=== PATIENT | female | born 1990 | race Caucasian/White ===

== ENCOUNTER → 2016-10-02 13:25 | Observation (INO) ==
--- NOTE | 2016-10-02 11:41 | OB/GYN Progress Note ---
Date of Encounter: 10/02/16 Time of Encounter: 11:40 - Assessment and Plan (1) Short interval between pregnancies affecting in third trimester, antepartum Current Visit: Yes Status: Acute (2) 32 weeks gestation of Current Visit: Yes Status: Acute (3) Cramping affecting , antepartum Current Visit: Yes Status: Acute Pt reports cramping has significantly improved since arrival to triage. SVE with repeat exam unchanged. We discussed that dehydration and intercourse can both lead to contractions. Pt to avoid intercourse until her next appointment and to increase water intake. Discharge home with strict PTL precautions. (4) Anti-D antibodies present during Current Visit: No Status: Acute Pt to follow-up as scheduled. Qualifiers: Fetus number: single or unspecified fetus Trimester: third trimester Qualified Code(s): O36.0130 - Maternal care for anti-D [Rh] antibodies, third trimester, not applicable or unspecified Subjective - Subjective Principal diagnosis: cramping Interval history: 26 year-old presenting at 32w2d with c/o cramping and nausea. She reports intercourse this am as well as cramping, nausea, and vomiting for the last 2 days. She states she vomited this am and has some mild nausea now. She denies need for nausea medication. She states the cramping has been constant this am. She also reports urinary frequency but states that is not a new symptom. Good FM. No other complaints. Antepartum ROS: movement normal, contractions, no loss of fluid, no vaginal bleeding Objective - Vital Signs Vital Signs: Intake and Output 10/01/16 10/02/16 10/02/16 23:59 07:59 15:59 Other: Weight 66.5 kg Patient Weight 10/02/16 23:59 Weight 66.5 kg - Exam FHR: category 1 FHR comments: NST reactive. Auscultation: bilateral: normal Abdomen: Present: soft, gravid. Absent: tenderness Uterus: Absent: tenderness Cervical dilation: 1 Cervix effacement: 70 station: high
[2016-10-02 12:02] LABS: Bilirubin,Urine Negative (Negative); Blood,Urine Negative (Negative); Color,Urine Yellow (Yellow); Glucose,Urine (UA) Normal (Normal); Ketones,Urine Negative (Negative); Leukocyte Esterase,Urine Negative (Negative); Nitrite,Urine Negative (Negative); PH,Urine 7.5 pH Units (5.0-8.0); Protein,Urine Trace mg/dL (Neg-Trace); Specific Gravity,Urine 1.022 (1.010-1.025); Urobilinogen,Urine Normal (Normal)
[2016-10-02 12:06] LABS: Clarity,Urine Clear (Clear)
== END | disposition home or self-care (01) ==
LOC: 1NENULAB
PROVIDERS: ADMIT Obstetrics & Gynecology; ATTEND Obstetrics & Gynecology

== ENCOUNTER → 2016-11-12 01:42 | Observation (INO) ==
--- NOTE | 2016-11-12 01:17 | OB/GYN History & Physical ---
Date of Encounter: 11/11/16 Time of Encounter: 22:45 Assessment and Plan (1) 38 weeks gestation of Current visit: Yes Status: Acute extended monitoring cervical checks Kleihauer-Betke Hgb quant (2) Maternal care for anti-D (Rh) antibodies in third trimester Current visit: Yes Status: Acute Qualifiers: Fetus number: single or unspecified fetus Qualified Code(s): O36.0130 - Maternal care for anti-D [Rh] antibodies, third trimester, not applicable or unspecified History of Present Illness Chief complaint: fall while HPI: Ms. Sunshine is a 26 year old female at 38.0 weeks gestation who presents after tripping and falling on her gravel driveway earlier this evening around 5pm. She states she had decreased movement after the fall. Denies vaginal bleeding, loss of fluid, dizziness, blurred vision, headache. Labs: Blood type A- GBS -, Rubella immune Past Med Surg Social Fam HX - Past Medical History Medical history: GERD Psychiatric history: anxiety, depression - Past Surgical History Surgical History: cholecystectomy - Social History Smoking Status: Former smoker Smokeless Tobacco Status: No Alcohol use: none Drug use: none - Family History Brother Family Member Ethnicity: Non- Living Status: Still Living Hx Family Cardiac Disorders: No Hx Family Respiratory Disorders: No Hx Family Cancer: No Hx Family GI Disorders: No Hx Family Genitourinary Disorders: No Hx Family Endocrine Disorder: No Hx Family Musculoskeletal Disorders: No Hx Family Neuromuscular Disorders: No Hx Family Neurologic Disorders: No Hx Family HEENT Disorders: No Hx Family Autoimmune Disorders: No Hx Family Reproductive Disorders: No Hx Family Psychosocial Disorders: No Hx Family Medical Disorders: No Obstetrical History - Pregnancies : 5 Para: 4 Term: 4 : 0 Ab's: 0 Livin Medications and Allergies Mini Tablet 1 tab PO DAILY 12/08/15 [History] Allergies No Known Allergies Allergy (Verified 08/14/15 12:52) Review of System OB - Constitutional Constitutional ROS IM: as per HPI Exam - Constitutional Constitutional: well developed, well nourished, no acute distress, average body habitus - HEENT HEENT: Normocephaly, Mucus Membranes Moist - Neck Neck exam: normal inspection - Lungs Respiratory exam: CTAB - Cardiovascular Cardiovascular exam: RRR, +S1, +S2 - Abdomen Abdomen: Present: bowel sounds normal, gravid, non tender - Extremities Extremities exam: normal capillary refill, normal inspection, warm - Cervix Dilation: 3 Effacement: 70 Results All other labs normal. - VTE Reasons for not Prescribing Prophylaxis: Treatment not Indicated - Low risk for VTE
== END | disposition home or self-care (01) ==
LOC: 1NENULAB
PROVIDERS: ADMIT Obstetrics & Gynecology; ATTEND Obstetrics & Gynecology

== ENCOUNTER 2016-11-22 21:34 | Inpatient (IN) ==
[2016-11-22] MEDS ORDERED: Naloxone 0.4 MG/ML INJ IVP PRN (21:56)
[2016-11-22] MEDS ORDERED: Famotidine 20 MG/2 ML VIAL IVP PRN (21:56)
[2016-11-22] MEDS ORDERED: Ringers Solution, Lactated 1,000 ML ONE (22:05)
[2016-11-22] MEDS ORDERED: Ringers Solution, Lactated 1,000 ML IVC SCH (22:15)
[2016-11-22 22:22] LABS: Basophils % 0.4 %; Eosinophils # 0.3 K/mcL (0.0-0.6); Eosinophils % 2.8 %; Hemoglobin 8.6 g/dL (11.5-15.4); Immature Granulocytes % 0.7 % (0-4); Immature Platelets 10.4 % (1.1-6.1); Lymphocytes # 1.8 K/mcL (0.6-4.6); Lymphocytes % 16.9 %; Mean Corpuscular HGB Conc 29.7 g/dL (31.6-35.5); Mean Corpuscular Hemoglobin 21.7 pg (28.0-33.3); Mean Platelet Volume 12.1 fL (9.4-12.4); Monocytes # 0.6 K/mcL (0.0-1.3); Neutrophils # 7.8 K/mcL (1.6-8.9); Platelet Count 260 K/mcL (140-400); Red Blood Count 3.97 M/mcL (3.82-4.97); Red Cell Distribution Width 17.1 % (11.5-14.5); Segmented Neutrophils % 73.2 %
--- NOTE | 2016-11-22 22:59 | OB/GYN History & Physical ---
Date of Encounter: 11/22/16 Time of Encounter: 22:55 Assessment and Plan (1) Maternal care for anti-D (Rh) antibodies in third trimester Current visit: No Status: Acute Qualifiers: Fetus number: single or unspecified fetus Qualified Code(s): O36.0130 - Maternal care for anti-D [Rh] antibodies, third trimester, not applicable or unspecified (2) Short interval between pregnancies affecting in third trimester, antepartum Current visit: No Status: Acute (3) Spontaneous onset of labor Current visit: No Status: Acute Admit to labor and delivery Encourage ambulation May have intermittent monitoring every 30 minutes before, during and after a contraction Nuabin and epidural as desired Anticipate Desires BPS History of Present Illness Chief complaint: Contractions HPI: Ms. Sunshine is a 26 year old 39+4 female presents to triage with contractions since 6pm this evening. complicated by Rh isoimmunization. Titers stable at 8. PAP ASCUS +HPV with colposcopy. Reports good movement, denies vaginal bleeding or leaking of fluid. Pt desires BPS Labs: A-, Rubella immune, GBS -, all other serologies negative. Past Med Surg Social Fam HX - Past Medical History Medical history: GERD Psychiatric history: anxiety, depression - Past Surgical History Surgical History: cholecystectomy - Social History Smoking Status: Former smoker Smokeless Tobacco Status: No Alcohol use: none Drug use: none - Family History Brother Adopted: No Family Member Ethnicity: Non- Living Status: Still Living Hx Family Cardiac Disorders: No Hx Family Respiratory Disorders: No Hx Family Cancer: No Hx Family GI Disorders: No Hx Family Genitourinary Disorders: No Hx Family Endocrine Disorder: No Hx Family Musculoskeletal Disorders: No Hx Family Neuromuscular Disorders: No Hx Family Neurologic Disorders: No Hx Family HEENT Disorders: No Hx Family Autoimmune Disorders: No Hx Family Reproductive Disorders: No Hx Family Psychosocial Disorders: No Hx Family Medical Disorders: No Obstetrical History - Pregnancies : 5 Para: 4 Term: 4 : 0 Ab's: 0 Livin Medications and Allergies Mini Tablet 1 tab PO DAILY 12/08/15 [History] 3 Allergy/AdvReac Type Severity Reaction Status Date / Time No Known Allergies Allergy Verified 08/14/15 12:52 Exam - Constitutional Constitutional: well developed, well nourished, no acute distress, average body habitus - Neck Neck exam: full ROM - Lungs Respiratory exam: CTAB - Cardiovascular Cardiovascular exam: RRR - Abdomen Abdomen: Present: bowel sounds normal, gravid, non tender - Vulva Vulva: bilateral: normal - Vagina Vagina: Present: normal moisture - Cervix Dilation: 4 Station: -2 - Uterus Uterus exam: Present: normal size, normal contour Results Result Diagrams: 11/22/16 22:00 Abnormal lab results Hgb 8.6 g/dL (11.5-15.4) L 11/22/16 22:00 Hct 29.0 % (35.3-44.9) L 11/22/16 22:00 MCV 73.0 fL (83.0-100.0) L 11/22/16 22:00 MCH 21.7 pg (28.0-33.3) L 11/22/16 22:00 MCHC 29.7 g/dL (31.6-35.5) L 11/22/16 22:00 RDW 17.1 % (11.5-14.5) H 11/22/16 22:00 Immature Plt Fraction 10.4 % (1.1-6.1) H 11/22/16 22:00 All other labs normal. - VTE Reasons for not Prescribing Prophylaxis: Treatment not Indicated - Low risk for VTE
[2016-11-22] MEDS ORDERED: Oxytocin 20 units/ LR 1000 mL 20 UNIT/1,000 ML BAG IVC SCH (23:45)
[2016-11-23] MEDS ORDERED: *HR* Nalbuphine 20 MG/ML AMPUL ONE (04:41)
[2016-11-23] MEDS ORDERED: *HR* Nalbuphine 20 MG/ML AMPUL IVP PRN (04:42)
[2016-11-23] MEDS ORDERED: Ibuprofen 800 MG TABLET PO ONE (05:32)
[2016-11-23] MEDS ORDERED: Ibuprofen 600 MG TABLET PO ONE (05:33)
--- NOTE | 2016-11-23 05:36 | OB/GYN Procedure Note ---
Delivery - Delivery Date: 11/23/16 Provider: Gavi Cali Intrapartum events: none Delivery induction: none Delivery augmentation: pitocin Delivery monitor: external FHT, external uterine Anesthesia: intravenous Estimated Blood Loss: 100 - (s) Infant A Infant Delivery Date: 11/23/16 Infant Delivery Time: 05:19 Presentation: vertex Position: RASHI Route of delivery: Gender: Female Viability: Viable Pounds: 8 Ounces: 4 Weight Gram: 3735 kg at 1 minute: 8 at 5 mins: 9 Shoulder Dystocia: encountered Shoulder Dystocia Maneuvers: Cameron maneuver, suprapubic pressure Shoulder dystocia time elapsed: 69 seconds Specimens collected: cord blood Placenta: spontaneous Cord: 3 umbilical vessels - Repair Episiotomy: none Laceration Description: None - Complications Delivery complications: meconium Delivery comments: SROM, pitocin augmentation, progressed to complete, Maternal bearing down efforts to of liveborn girl. Vertex delivered RASHI, turtle sign noted, slow restitution to ROT, shoulders did not deliver with initial attempt, Mikie dickerson adjusted, shoulders still did not deliver, called for Dr. Carroll to attend delivery, suprapubic pressure from maternal right side, anterior shoulder delivered with suprapubic pressure, slow delivery of posterior shoulder and then fully delivered body. Dystocia time 69 second. placed on maternal abdomen, cord immediately cut and clamped. stimulated to cry APGARS 8/9. Placenta delivered spontaneously intact (mari). EBL 100. Perineum intact, mother and left boding in labor and delivery. - Disposition Mom disposition: stable in LDR disposition: stable in LDR
[2016-11-23] MEDS ORDERED: Rho Immune Globulin 1,500 UNIT SYRINGE IM PRN (08:00)
[2016-11-23] MEDS ORDERED: Oxytocin 20 units/ LR 1000 mL 20 UNIT/1,000 ML BAG IVC SCH (08:00)
[2016-11-23] MEDS ORDERED: Measles/Mumps/Rubella Vacc 0.5 ML VIAL SQ PRN (08:00)
[2016-11-23] MEDS: Acetaminophen 325 MG TABLET PO PRN ×2 (08:29→19:44)
[2016-11-23] MEDS: Prenatal Vit/FA 1 EACH TABLET PO SCH (08:30)
[2016-11-23] MEDS: Ibuprofen 600 MG TABLET PO PRN (15:16)
--- NOTE | 2016-11-23 19:16 | Anesthesia Evaluation PreOp ---
Date of Encounter: 11/23/16 Time of Encounter: 19:13 - Past History Planned Operation: BPS Cardiac History: Denies any Significant Hx Pulmonary History: Denies Any Significant HX ACCOUNT SERVICES COORDINATOR History: Denies Any Significant HX Other Medical History: Denies Any Significant HX Anesthesia History: No Prior Anesthetic Complications, Past Anesthesia (GB) : No ( delivered 11/23/2016 @ 05:19) Alcohol Use: none Drug use: none Medications and Allergies Mini Tablet 1 tab PO DAILY 12/08/15 [History] 3 Allergy/AdvReac Type Severity Reaction Status Date / Time No Known Allergies Allergy Verified 08/14/15 12:52 - Meds/Allergy Pre-op Review Medications Reviewed: Yes Allergies Reviewed: Yes Beta Blockers on Current Med List: No Anesthesia Results - Labs 11/22/16 22:00 Anesthesia Exam O2 Sat Height 1.55 m Weight 65.7 kg Weight 68 kg O2 Sat by Pulse Oximetry 99 O2 Sat by Pulse Oximetry 98 O2 Sat by Pulse Oximetry 100 O2 Sat by Pulse Oximetry 98 Vital Signs Temp Pulse Resp BP Pulse Ox 97.9 F 70 16 108/70 98 11/23/16 07:45 11/23/16 07:45 11/23/16 07:45 11/23/16 07:45 11/23/16 07:45 Vital Signs/O2 Sat, Most Current Temp Pulse Resp BP Pulse Ox 98.1 F 73 16 128/85 99 11/23/16 15:05 11/23/16 15:05 11/23/16 15:05 11/23/16 15:05 11/23/16 15:05 Height: 5'1'' Weight: 145# NPO (# of Hours): > 8 hrs Pain Scale: 0 Pain Scale Used: Numeric (1 - 10) - HEENT Pupil (Motor): Pupils equal, EOMI Mallampati: II Teeth: Normal Oral Opening: Greater than 3 - ACCOUNT SERVICES COORDINATOR LOC: Oriented ACCOUNT SERVICES COORDINATOR Motor: Normal RUE, Normal LUE, Normal RLE, Normal LLE, Normal Face ACCOUNT SERVICES COORDINATOR Sensory: Normal: RUE, LUE, RLE, LLE, Face - Cardiac Rhythm: Regular Murmur: None JVD: No Carotid Bruit: No - Pulmonary Breath Sounds: bilateral Clear Respiratory Effort: Symmetrical Anesthesia Assess/Plan ASA Score: 1 Modified Hagerman Scale for Level of Consciousness: Cooperative, oriented, and tranquil Anesthetic Plan: General Autologous Blood: Yes Monitoring Plan: Standard Monitors Recovery Plan: PACU
[2016-11-24] MEDS: Ibuprofen 600 MG TABLET PO PRN ×2 (02:53→11:09)
[2016-11-24 06:32] LABS: Basophils % 0.4 %; Eosinophils # 0.2 K/mcL (0.0-0.6); Eosinophils % 2.4 %; Hematocrit 24.4 % (35.3-44.9); Hemoglobin 7.1 g/dL (11.5-15.4); Immature Granulocytes % 0.8 % (0-4); Lymphocytes # 1.8 K/mcL (0.6-4.6); Lymphocytes % 19.8 %; Mean Corpuscular HGB Conc 29.1 g/dL (31.6-35.5); Mean Corpuscular Hemoglobin 21.8 pg (28.0-33.3); Mean Corpuscular Volume 75.1 fL (83.0-100.0); Mean Platelet Volume 12.1 fL (9.4-12.4); Monocytes # 0.6 K/mcL (0.0-1.3); Monocytes % 6.2 %; Neutrophils # 6.3 K/mcL (1.6-8.9); Nucleated Red Blood Cells 0.3 /100 WBC (0); Platelet Count 201 K/mcL (140-400); Red Blood Count 3.25 M/mcL (3.82-4.97); Red Cell Distribution Width 17.2 % (11.5-14.5); Segmented Neutrophils % 70.4 %
[2016-11-24 07:53] VITALS: BP 101/65
[2016-11-24] MEDS: Prenatal Vit/FA 1 EACH TABLET PO SCH (11:08)
--- NOTE | 2016-11-24 11:13 | Discharge Summary ---
Date of Encounter: 11/24/16 Time of Encounter: 11:08 - Discharge Diagnosis (1) Normal vaginal delivery Priority: Primary Status: Acute Comments: Patient doing well s/p day 1. Pain well controlled Voiding and passing flatus without difficulty Bottle feeding is going well Lochia is light and without clots Discharge home this evening with baby (2) Anemia during puerperium Priority: Secondary Status: Acute Comments: VSS, patient asymptomatic. Will increase ferrous sulfate to BID and encouraged to take with vitamin C to aid absorption. - Discharge Medications Prescriptions: Ibuprofen [Motrin] 600 mg PO Q6HR PRN #30 tab PRN Reason: Cramping Docusate [Colace] 100 mg PO BID PRN #30 PRN Reason: Constipation Ferrous Sulfate 325 mg PO BID #60 tab Home Medications: Mini Tablet 1 tab PO DAILY 12/08/15 [History] Docusate [Colace] 100 mg PO BID PRN #30 11/24/16 [Rx] Ferrous Sulfate 325 mg PO BID #60 tab 11/24/16 [Rx] Ibuprofen [Motrin] 600 mg PO Q6HR PRN #30 tab 11/24/16 [Rx] Allergies/Adverse Reactions: 3 Allergy/AdvReac Type Severity Reaction Status Date / Time No Known Allergies Allergy Verified 08/14/15 12:52 Data Procedures and tests throughout hospitalization: Laboratory Tests 11/22/16 11/23/16 11/24/16 22:00 05:55 06:18 WBC 10.6 9.0 RBC 3.97 3.25 L Hgb 8.6 L 7.1 L D Hct 29.0 L 24.4 L MCV 73.0 L 75.1 L MCH 21.7 L 21.8 L MCHC 29.7 L 29.1 L RDW 17.1 H 17.2 H Plt Count 260 201 MPV 12.1 12.1 Immature Gran % 0.7 0.8 Seg Neutrophils % 73.2 70.4 Lymphocytes % 16.9 19.8 Monocytes % 6.0 6.2 Eosinophils % 2.8 2.4 Basophils % 0.4 0.4 Neutrophils # 7.8 6.3 Lymphocytes # 1.8 1.8 Monocytes # 0.6 0.6 Eosinophils # 0.3 0.2 Basophils # 0.0 0.0 Nucleated RBCs/100 WBC 0.3 H Immature Plt Fraction 10.4 H Screen Cancelled Baby's Blood Type A RH POSITIVE Mother's Blood Type A RH NEGATIVE Rhogam Indicated NO Rhogam Req for Mother Cancelled Labs on day of discharge: Labs from last 24 hours 11/24/16 06:18 WBC 9.0 RBC 3.25 L Hgb 7.1 L D Hct 24.4 L MCV 75.1 L MCH 21.8 L MCHC 29.1 L RDW 17.2 H Plt Count 201 MPV 12.1 Immature Gran % 0.8 Seg Neutrophils % 70.4 Lymphocytes % 19.8 Monocytes % 6.2 Eosinophils % 2.4 Basophils % 0.4 Neutrophils # 6.3 Lymphocytes # 1.8 Monocytes # 0.6 Eosinophils # 0.2 Basophils # 0.0 Nucleated RBCs/100 WBC 0.3 H Date of admission: 11/22/16 21:34 Primary care physician: PCP NONE Consults: 11/23/16 08:00 Consult to Shotgun Shell Reprinting Unit Operator [CONS] Routine Comment: Vaginal delivery, consult needed Discharging clinician: Hattie Weir Anticipated date of discharge: 11/24/16 - Patient Status Disposition: Home, Self-Care Condition: Good Functional capacity at discharge: independent ambulation Overall status at discharge: patient is progressing back to baseline - Discharge Instructions Follow Up With: NONE,PCP [Primary Care Provider] - Louise Cowan DO [Partnered Physician] - Additional Instructions: Perineal Care: Always wipe front to back Change your pad frequently Use your bobby bottle with warm water and spray front to back Do not douche, use tampons, have sexual intercourse or put anything in your vagina for 4-6 weeks after delivery Bleeding: Vaginal bleeding can last up to 6 weeks Your menstrual period may return as early as 6 weeks after you are discharged from the hospital [place]/Stitches Care: Vaginal Delivery Vaginal stitches will dissolve within 4-6 weeks Follow perineal care instructions Care Stitches will dissolve on their own If you have melissa, they will need to be removed in the doctors office within 5-7 days. You may shower with stitches or melissa Drip plan or soapy water over the incision to clean. Pat dry gently with a clean towel. Make sure you completely dry under the skin folds DO NOT USE powders, lotions, rubbing alcohol or hydrogen peroxide on or around your incision. This will slow your wound healing It is normal to have soreness, burning, tingling, itchiness and/or numbness as your incision heals Activity: Rest frequently Do not lift anything heavier than a gallon of milk, up to 10-15 pounds No driving for 1-2 weeks for Vaginal delivery No driving for 2-4 weeks for delivery Take stairs slowly, one at a time Gradually increase your daily activity until you are back to your normal routine Do not exercise until you have had your follow-up appointment Bathing: Take a shower daily Do not take a tub bath for the first 4 weeks Diet: Drink plenty of water and fruit juices Eat a well-balanced diet with foods high in fiber such as fruits and vegetables Depression: Your hormones have a major impact on your feelings and emotions. Hormone imbalance may cause changes in your mood, creating unfamiliar thoughts and actions. Support is available to help you understand and cope with these feelings and mood changes. If you answer yes to any of the following questions, please call your health care provider: Are you having trouble sleeping? Are you feeling isolated? Have you lost your appetite? Are you having thoughts of hurting yourself or others? WARNING SIGNS: Heavy bleeding from the vagina (blood is bright red and soaks a sanitary pad in an hour or less.) Passing a blood clot larger than your fist Discharge from the vagina that has a bad odor Temperature over 100.4 F, or if you feel cold and have chills An episiotomy site that is warm, swollen or oozing. Use a mirror if needed Urination (pee) that is painful, very red and swollen or leaking fluid An incision that is painful, very red and swollen and leaking fluid An incision that has come open Breasts that are painful or full with flu like symptoms Redness, warmth or swelling in the calf of your leg Trouble breathing, dizziness, visual disturbance or faintness *Notify your health care provider immediately or go to the nearest Emergency Room if you experience any of the above signs.* To contact the nurses station 24 hours a day, For non-urgent, routine questions, please call the office at - Diet and Activity Activity: increase activity as tolerated Diet: regular diet Hospital Course Reason for admission: active labor, IUP at term Delivery: Episiotomy: none Laceration: none Other procedures: none complications: none Discharge diagnosis: IUP at term delivered [place] baby: female Time Attestation: Total time spent providing and/or coordinating discharge services: Time Spent: Less than 30 minutes Exam - Constitutional Vitals: Temp Pulse Resp BP Pulse Ox 98.4 F 84 16 101/65 98 11/24/16 07:30 11/24/16 07:30 11/24/16 07:30 11/24/16 07:30 11/24/16 07:30 General appearance IM: cooperative, A&O X 3, pleasant - Respiratory Respiratory exam: Present: CTAB - Cardiovascular Cardiovascular exam IM: Present: RRR, +S1, +S2 - GI/Abdominal GI/Abdominal exam IM: normal bowel sounds, soft - Rectal Rectal exam: deferred - Uterine Tone: Firm Uterus Position: At Umbilicus, Left of Midline - Extremities Exam Extremities exam IM: Present: normal capillary refill, normal inspection, radial pulses palpable and symmetrical - Neurological Exam Neurological exam: alert, oriented X3, reflexes normal
== END 2016-11-24 14:00 | disposition home or self-care (01) | DRG 560 ==
LOC: 1NENULAB → 1NENUOBS 11-23 07:45
PROVIDERS: ADMIT Obstetrics & Gynecology; ATTEND Obstetrics & Gynecology